=== PATIENT | male | born 1995 | race Caucasian/White ===

== ENCOUNTER 2017-05-13 20:18 | Emergency (ER) | payer OTHER ==
[2017-05-13 20:36] VITALS: TEMP 36.8
[2017-05-13 23:30] VITALS: BP 111/73; PULSE 112; O2SAT 94
--- NOTE | 2017-05-14 03:39 | EMERGENCY ROOM VISIT NOTE ---
History First contact with patient: 20:22 Chief Complaint: ALCOHOL OVERDOSE Stated Complaint: ETOH Nursing Triage Summary: found at stadium intoxicated History of Present Illness The patient is a 21 year old male who presents to the Emergency Room via [place] the [place]. There was no known witnessed injuries, and the patient denies any pain. He does report drinking a large amount of alcohol today. He denies illicit drug use or other injuries. Review of Systems 10 system review was performed and was negative except for pertinent positives and negatives as indicated in history of present illness Past Medical/Surgical History Medical Problems: (1) No significant past medical history Surgical Problems: (1) No history of previous surgery Family History Unremarkable Social History Smoking Status: Never Smoker Alcohol Use: occasionally Marital Status: single Occupation Status: [employer] student Current/Historical Medications No Active Prescriptions or Reported Meds Physical Exam Vital Signs Date Time Temp Pulse Resp B/P (MAP) Pulse Ox O2 Delivery O2 Flow Rate FiO2 05/13/17 23:30 112 16 111/73 94 Room Air 05/13/17 22:04 56 14 103/54 97 Room Air 05/13/17 21:26 74 18 142/84 99 05/13/17 20:36 36.8 95 18 142/84 96 Room Air 05/13/17 20:36 Room Air Physical Exam CONSTITUTIONAL: Healthy and well nourished. Strong smell of EtOH is present. The patient is cooperative and does converse and communication. HEENT: Normocephalic, atraumatic. Pupils equal, round and reactive. No epistaxis, hemotympanum, raccoon's eyes or Wolf sign. NECK: Full active range of motion without discomfort. RESPIRATORY: Clear to auscultation bilaterally with no wheezing, crackles, rhonchi or stridor. CARDIOVASCULAR: Regular rate and rhythm with no murmurs, rubs or gallops. GASTROINTESTINAL: Bowel sounds present in all quadrants. MUSCULOSKELETAL: Full range of motion of all joints without discomfort. INTEGUMENTARY: No rash or other significant dermatologic conditions noted. NEUROLOGIC: No focal neurologic deficits noted. Medical Decision & Procedures Laboratory Results Test 05/13/17 20:55 Ethyl Alcohol mg/dL 156.7 mg/dl (0-3) ED Course Patient history and physical exam were performed. Nurse's notes were reviewed. Vital signs were reviewed and were normal. 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 Blood alcohol was 156.7. The patient had no further adverse events while in the emergency department, and was eventually discharged with sober friends. The patient was advised that he is underage drinking. He was instructed to remain well-hydrated today, avoiding any further alcohol consumption. Follow-up with [facility] as needed for any persistent symptoms. The patient was provided contact information for the [facility]. Medical Decision Blood Pressure Screening Patient's blood pressure: Normal blood pressure Impression Primary Impression: Alcohol overdose Departure Information Dispostion Home / Self-Care Condition FAIR Prescriptions No Active Prescriptions or Reported Meds Referrals No Doctor, Assigned (PCP) Forms HOME CARE DOCUMENTATION FORM, IMPORTANT VISIT INFORMATION Patient Instructions My [facility] Additional Instructions Your blood alcohol was 0.157. You are underage drinking. Rest and remain well-hydrated over the next 24 hours. Follow-up with your PCP as needed for further management. Problem Qualifiers Primary Impression: Alcohol overdose Encounter type: initial encounter Injury intent: undetermined intent Qualified Codes: T51.94XA - Toxic effect of unspecified alcohol, undetermined, initial encounter
== END 2017-05-13 23:52 | disposition home or self-care (01) ==
LOC: EDBD 20:18 → C.EDD 20:20
DX: T51.91XA Toxic effect of unspecified alcohol, accidental (unintentional), initial encounter (principal)